=== PATIENT | male | born 1990 | race Caucasian/White ===

== ENCOUNTER 2016-09-19 20:16 | Emergency (ER) | payer OTHER ==
[2016-09-19 20:36] VITALS: BP 134/81; PULSE 130; TEMP 98.6; BMI 23.6
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
== END 2016-09-19 23:24 | disposition home or self-care (01) ==
LOC: JER 20:16
DX: S16.1XXA Strain of muscle, fascia and tendon at neck level, initial encounter (principal); V28.4XXA Motorcycle driver injured in noncollision transport accident in traffic accident, initial encounter; Y92.414 Local residential or business street as the place of occurrence of the external cause; Y93.89 Activity, other specified; Y99.8 Other external cause status
CPT/HCPCS: 70450-TC; 72050-TC; 72070-TC; 72100-TC; 99281-25

== ENCOUNTER 2017-01-28 18:37 | Emergency (ER) | payer OTHER ==
[2017-01-28 18:42] VITALS: BP 100/60; PULSE 55; TEMP 98; BMI 23.6
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
== END 2017-01-28 21:02 | disposition home or self-care (01) ==
LOC: JERFT 18:37
PROC: 2W3RX1Z Immobilization of Left Lower Leg using Splint (ICD-10-PCS; principal; 2017-01-28)
DX: S92.215A Nondisplaced fracture of cuboid bone of left foot, initial encounter for closed fracture (principal); V23.4XXA Motorcycle driver injured in collision with car, pick-up truck or van in traffic accident, initial encounter; Y92.414 Local residential or business street as the place of occurrence of the external cause; Y93.89 Activity, other specified; Y99.8 Other external cause status
CPT/HCPCS: 29515; 73610-TC-LT; 73630-TC-LT; 99281-25

== ENCOUNTER 2017-02-26 04:38 | Emergency (ER) | payer OTHER ==
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
[2017-02-26] MEDS ORDERED: ONDANSETRON 4 MG/2 ML VIAL IVPUSH ONE (04:50)
[2017-02-26] MEDS ORDERED: HYDROmorphone HCL CARPU-JECT 1 MG/1 ML DISP.SYRIN IVPUSH ONE (04:50)
[2017-02-26] MEDS ORDERED: TETANUS AND DIPHTHERIA TOXOID 0.5 ML DISP.SYRIN IM ONE (04:50)
[2017-02-26] MEDS ORDERED: HYDROmorphone HCL CARPU-JECT 1 MG/1 ML DISP.SYRIN ONE (04:52)
[2017-02-26 04:59] LABS: BASOPHIL 0.4 % (0-2.0); MCH 27.4 pg (25.7-33.7); MCHC 33.3 g/dl (32.0-35.9); MEAN CELL VOLUME 82.3 fl (80-96); MEAN PLT VOLUME 6.7 fl (7.5-11.1); NEUTROPHILS 74.8 % (42.8-82.8); PLATELET COUNT 305 K/MM3 (134-434); RDW 13.6 % (11.9-15.9); WHITE BLOOD COUNT 12.8 K/mm3 (4.0-10.0)
[2017-02-26 05:45] VITALS: BP 158/92; PULSE 119; BMI 25.1
[2017-02-26 05:48] LABS: CREATININE 1.4 mg/dL (0.7-1.3); GLUCOSE,RANDOM 131 mg/dL (74-106)
[2017-02-26 05:49] LABS: ALBUMIN 4.4 g/dl (3.4-5.0); ALK PHOS 80 U/L (45-117); ANION GAP 17 (8-16); BILIRUBIN,TOTAL 0.6 mg/dL (0.2-1.0); CALCIUM 9.1 mg/dL (8.5-10.1); CO2 17 mmol/L (21-32); SGOT/AST 35 U/L (15-37); SGPT/ALT 36 U/L (12-78); TOT PROT 8.2 g/dl (6.4-8.2)
== END 2017-02-26 06:46 | disposition home or self-care (01) ==
LOC: JER 04:38
PROC: 3E0234Z Introduction of Serum, Toxoid and Vaccine into Muscle, Percutaneous Approach (ICD-10-PCS; principal; 2017-02-26)
PROC: 3E033NZ Introduction of Analgesics, Hypnotics, Sedatives into Peripheral Vein, Percutaneous Approach (ICD-10-PCS; 2017-02-26)
PROC: 3E033GC Introduction of Other Therapeutic Substance into Peripheral Vein, Percutaneous Approach (ICD-10-PCS; 2017-02-26)
DX: S00.01XA Abrasion of scalp, initial encounter (principal); S50.811A Abrasion of right forearm, initial encounter; S80.212A Abrasion, left knee, initial encounter; S80.211A Abrasion, right knee, initial encounter; S80.01XA Contusion of right knee, initial encounter; Y04.0XXA Assault by unarmed brawl or fight, initial encounter; Y93.89 Activity, other specified; Y92.89 Other specified places as the place of occurrence of the external cause; Y99.8 Other external cause status
CPT/HCPCS: 36415; 70450-TC; 71250-TC; 74176-TC; 80053; 85025; 86850; 86900; 86901; 90471; 90714; 96374; 96375; 99281-25

== ENCOUNTER 2017-11-13 21:18 | Emergency (ER) | payer OTHER ==
[2017-11-13 21:39] VITALS: BP 133/53; PULSE 98; TEMP 98.6; BMI 28.0
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
== END 2017-11-13 22:27 | disposition home or self-care (01) ==
LOC: JERFT 21:18
DX: S30.0XXA Contusion of lower back and pelvis, initial encounter (principal); V18.4XXA Pedal cycle driver injured in noncollision transport accident in traffic accident, initial encounter; Y92.488 Other paved roadways as the place of occurrence of the external cause; Y93.55 Activity, bike riding; Y99.8 Other external cause status
CPT/HCPCS: 72170-TC-FY; 99281-25